=== PATIENT | male | born 1940 | race Caucasian/White ===

== ENCOUNTER → 2016-05-20 | Outpatient (CLI) | payer BC ==
[~2016-05-20] MED LIST: ASPEC81 PO; CALC625T PO; CHOL1000 PO; CIPR-255 PO; CYAN100020 PO; FLUV80TA PO; GLC850 PO; GLIP-197 PO; LISI10TA PO; MELA3TAB PO; MULTTAB58 PO; OMEGCAP2 PO; OMEP40CA41 PO
[2016-05-20 13:26] LABS: BASO % 0.8 %; BASO ABS # 0.06 K/uL (0-0.2); COMPLETE YES; EOS % 2.7 %; IG% 0.4 %; LYMPH % 39.8 %; LYMPH ABS # 2.82 K/uL (1.2-3.4); MEAN CELL VOLUME 83.7 fL (80-100); MEAN CORPUSCULAR HEMOGLOBIN 27.7 pg (25-34); MEAN CORPUSCULAR HGB CONC 33.1 g/dl (32-36); MEAN PLATELET VOLUME 10.5 fL (7.4-10.4); MONO % 12.4 %; NEUT % 43.9 %; PLATELET COUNT 271 K/uL (130-400); WHITE BLOOD COUNT 7.09 K/uL (4.8-10.8)
[2016-05-20 13:40] LABS: ALT/SGPT 26 U/L (12-78); BLOOD UREA NITROGEN 23 mg/dl (7-18); BUN/CREATININE RATIO 16.1 (10-20); CALCIUM 9.5 mg/dl (8.5-10.1); CARBON DIOXIDE 20 mmol/L (21-32); CHLORIDE 105 mmol/L (98-107); GLUCOSE 243 mg/dl (70-99); POTASSIUM 3.9 mmol/L (3.5-5.1); SODIUM 138 mmol/L (136-145)
[2016-05-20 13:43] LABS: ALB/GLOB RATIO 0.9 (0.9-2); ALKALINE PHOSPHATASE 55 U/L (45-117); AST/SGOT 15 U/L (15-37)
== END | disposition home or self-care (01) ==
LOC: C.LABBC 10:38
PROVIDERS: ATTEND Internal Medicine
DX: K52.9 Noninfective gastroenteritis and colitis, unspecified (principal)

== ENCOUNTER → 2016-05-21 | Outpatient (CLI) | payer BC ==
[2016-06-01 11:52] LABS: O&P SOURCE OTHER-STOOL
== END ==
LOC: C.LABSPEC 11:28
PROVIDERS: ATTEND Internal Medicine
DX: K52.9 Noninfective gastroenteritis and colitis, unspecified (principal)

== ENCOUNTER → 2016-08-18 | Outpatient (CLI) | payer BC ==
[2016-08-18 11:23] LABS: CHOLESTEROL/HDL RATIO 4.5
== END | disposition home or self-care (01) ==
LOC: C.LABBC 08:02
PROVIDERS: ATTEND Internal Medicine Cardiovascular Disease
DX: I10 Essential (primary) hypertension (principal); E78.5 Hyperlipidemia, unspecified

== ENCOUNTER 2019-11-19 10:40 | Observation (INO) ==
--- NOTE | 2019-10-25 13:25 | PAT Medication Instructions ---
Medication Instructions Date of Service October 25, 2019 Home Medications Medication Instructions Recorded Accu-Chek Softclix Lancets #200 ea NS 12/24/18 sildenafil 100 mg tablet See Rx Instructions .ROUTE 01/17/19 .COMPLEX #10 tab atorvastatin 40 mg tablet 60 mg PO QPM #135 tab 02/20/19 gabapentin 300 mg capsule 600 mg PO HS #180 cap 05/31/19 esomeprazole magnesium 40 mg 40 mg PO DAILY #90 cap 06/04/19 capsule,delayed release dulaglutide 1.5 mg/0.5 mL 1.5 mg SUBCUT WK #2 ml 08/09/19 subcutaneous pen injector Wheeled Walker #1 ea 10/17/19 cholecalciferol (vitamin D3) [Vitamin D3] 1,000 unit PO QAM glipizide 10 mg PO BID lisinopril 10 mg PO QAM metoprolol succinate 25 mg PO QAM multivitamin 1 tab PO QAM acetaminophen 325 mg tablet 650 mg PO Q6H PRN Lactobacillus acidophilus-Bifidobac.animalis 31 billion cell capsule 1 cap PO QAM sildenafil 100 mg tablet See Rx Instructions .ROUTE .COMPLEX atorvastatin 40 mg tablet 60 mg PO QPM insulin glargine 100 unit/mL subcutaneous solution 25 unit SUBCUT HS omega 3 350 mg-dha 235 mg-epa 90 mg-fish oil 597 mg capsule,delay rel 1 cap PO DAILY gabapentin 300 mg capsule 600 mg PO HS esomeprazole magnesium 40 mg capsule,delayed release 40 mg PO DAILY dulaglutide 1.5 mg/0.5 mL subcutaneous pen injector 1.5 mg SUBCUT WK cyanocobalamin (vitamin B-12) 1,000 mcg tablet 1,000 mcg PO .COMPLEX aspirin 81 mg PO QAM Continue as directed dulaglutide 1.5 mg/0.5 mL subcutaneous pen injector 1.5 mg SUBCUT WK STOP taking 2 weeks before surgery (or as soon as possible if surgery is within 2 weeks) omega 3 350 mg-dha 235 mg-epa 90 mg-fish oil 597 mg capsule,delay rel 1 cap PO DAILY DO NOT take the morning of surgery cholecalciferol (vitamin D3) [Vitamin D3] 1,000 unit PO QAM glipizide 10 mg PO BID lisinopril 10 mg PO QAM multivitamin 1 tab PO QAM Lactobacillus acidophilus-Bifidobac.animalis 31 billion cell capsule 1 cap PO QAM sildenafil 100 mg tablet See Rx Instructions .ROUTE .COMPLEX cyanocobalamin (vitamin B-12) 1,000 mcg tablet 1,000 mcg PO .COMPLEX Take morning of surgery With a small sip of water, OTHERWISE NOTHING TO EAT OR DRINK AFTER MIDNIGHT: metoprolol succinate 25 mg PO QAM acetaminophen 325 mg tablet 650 mg PO Q6H PRN (okay to take up to 4 hours prior to surgery if needed) esomeprazole magnesium 40 mg capsule,delayed release 40 mg PO DAILY aspirin 81 mg PO QAM Take evening before surgery glipizide 10 mg PO BID acetaminophen 325 mg tablet 650 mg PO Q6H PRN (if needed) sildenafil 100 mg tablet See Rx Instructions .ROUTE .COMPLEX (if needed) atorvastatin 40 mg tablet 60 mg PO QPM insulin glargine 100 unit/mL subcutaneous solution 25 unit SUBCUT HS gabapentin 300 mg capsule 600 mg PO HS Other Notes If you have any questions please call us at [phone] or [phone] or [phone] or [phone]
--- NOTE | 2019-10-29 09:00 | Anesthesiology Consultation ---
Date of Service October 29, 2019 Assessment & Plan (1) Encounter for pre-operative examination: - Per PAT assessment on 10/28: Travel screen negative. No known COVID-19 positive contacts. No current COVID-19 related symptoms. Surgeon arranging preop COVID testing (11/13, location TBD). Awaiting results. - Check BSG AM DOS - Cardiology office visit: 09/17/19: "The patient is stable from a cardiovascular standpoint. He demonstrates excellent control his blood pressure at home. His coronary artery disease remains quiescent his current medical regimen. No changes were made today." Cardiology addendum: 10/17/19: "The patient is an acceptable cardiac risk for knee replacement surgery without further testing." Chart Review Chart Review: Acceptable Risk for Surgery and Patient seen in Pre Admission Testing Teaching & Discussion Pre-Anesthesia Teaching/Discussion Notes: Instructed NPO after midnight before surgery,except medications with 15 cc of water. Medication instructions provided according to the PAT guidelines. History Surgery Operation Date: 11/19/19 12:30 Proposed Procedures p Right Total Knee Arthroplasty - Mehran Pineda MD Height/Weight Height: 5 ft 8 in Weight: 91.6 kg Allergies Allergy/AdvReac Type Severity Reaction Status Date / Time simvastatin AdvReac Intermediate Joint pain Verified 10/29/19 08:58 Medications Home Medications Medication Instructions Recorded Confirmed Last Taken cholecalciferol (vitamin D3) 1,000 unit PO QAM 06/12/18 10/24/19 07/10/18 08:00 [Vitamin D3] glipizide 10 mg PO BID 06/12/18 10/24/19 07/10/18 18:00 lisinopril 10 mg PO QAM 06/12/18 10/24/19 07/10/18 08:00 metoprolol succinate 25 mg PO QAM 06/12/18 10/24/19 07/10/18 08:00 multivitamin 1 tab PO QAM 09/04/18 10/24/19 Unknown acetaminophen 325 mg tablet 650 mg PO Q6H PRN tab 10/10/18 10/24/19 Unknown Lactobacillus 1 cap PO QAM cap 10/24/18 10/24/19 Unknown acidophilus-Bifidobac.animalis 31 billion cell capsule blood sugar diagnostic #10 ea 10/24/18 05/23/19 Unknown pen needle, diabetic 32 gauge x #50 ea 10/24/18 05/02/19 Unknown 03/16" Accu-Chek Softclix Lancets #200 ea NS 12/24/18 05/02/19 Unknown sildenafil 100 mg tablet See Rx Instructions .ROUTE 01/17/19 10/24/19 Unknown .COMPLEX #10 tab atorvastatin 40 mg tablet 60 mg PO QPM #135 tab 02/20/19 10/24/19 Unknown insulin glargine 100 unit/mL 25 unit SUBCUT HS ml 04/16/19 10/24/19 Unknown subcutaneous solution omega 3 350 mg-dha 235 mg-epa 90 1 cap PO DAILY cap 05/02/19 10/24/19 Unknown mg-fish oil 597 mg capsule,delay rel gabapentin 300 mg capsule 600 mg PO HS #180 cap 05/31/19 10/24/19 Unknown esomeprazole magnesium 40 mg 40 mg PO DAILY #90 cap 06/04/19 10/24/19 Unknown capsule,delayed release dulaglutide 1.5 mg/0.5 mL 1.5 mg SUBCUT WK #2 ml 08/09/19 10/24/19 Unknown subcutaneous pen injector cyanocobalamin (vitamin B-12) 1,000 mcg PO .COMPLEX 09/17/19 10/24/19 Unknown 1,000 mcg tablet Wheeled Walker #1 ea 10/17/19 10/17/19 Unknown aspirin 81 mg PO QAM 10/24/19 10/24/19 Unknown Past Medical History Medical History (Updated 10/29/19 @ 09:21 by Maria Guadalupe Taylor) Acid reflux controlled Anemia CAD (coronary artery disease) s/p CABGx3 (2012) Diabetes mellitus, type 2 IDDM Hyperlipidemia Hypertension Meningioma under surveillance Osteoarthritis Peripheral neuropathy Skin cancer BCC, 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 Daughter Crohn's disease Short gut syndrome Past Surgical History Surgical History (Updated 10/29/19 @ 09:24 by Maria Guadalupe Taylor) History of cardiac cath 2012 (NO STENTS) History of cataract surgery RT/LEFT History of colonoscopy History of tonsillectomy History of tooth extraction Hx of lymph node excision Left inguinal lymph node biopsy: 07/11/18: LMA#5 at [facility] S/P CABG x 13 AUGUST 2012 AT [place] Past Anesthesia History No Hx of Anesthesia Complications and No Family Hx of Anesthesia Complications History of PONV No Hx of PONV and No Hx of Motion Sickness Social History Smoking Status: Former smoker tobacco type: cigarettes Do You Dip or Chew Tobacco: No Smoking End Date: 2012 (hx < 1 PPD) Hx Alcohol Use: Yes Alcohol type: beer alcohol intake frequency: holidays/special occasions only Hx Substance Use: No substance use type: does not use Review of Systems Patient denies chest pain, shortness of breath, dyspnea on exertion, fever, chills, cough, wheezing, palpitations. Physical Exam Vital Signs VITALS BP 125/73 P 68 TEMP 98.1 SP02 95%RA RESP 18 PHYSICAL Full neck and c-spine range of motion. Full TMJ range of motion. TMD 3 finger breaths Mallampati Score 3 Dentition: full upper, lower partial Lungs: clear throughout to auscultation Cardiac: regular rate and rhythm, no murmurs noted Spine: normal Carotid arteries: negative bruit Extremities: no edema Testing Laboratory Results PT 11.2 Seconds (9.0-12.0) 10/29/19 09:14 INR 1.1 (0.9-1.1) 10/29/19 09:14 APTT 24.5 Seconds (21.0-31.0) 10/29/19 09:14 Blood Type A Positive 10/29/19 09:14 Antibody Screen NEGATIVE 10/29/19 09:14 10/28/19 WBC 6.08 H/H 13.5/39.8 PLATELETS 186 SODIUM 137 POTASSIUM 4.2 CHLORIDE 103 CO2 25 BUN 25 CREATININE 1.50 GLUCOSE 229 HGBA1C 7.7% Electrocardiogram Date: 10/29/19 SR with first degree AVB at 63bpm. No significant change compared to 06/14/18 per job forwarder review. Chest X-Ray Date: 10/29/19 FINDINGS: Median sternotomy wires and mediastinal surgical clips are noted. Mild cardiomegaly is unchanged. There is no evidence for pulmonary edema. No consolidation. No pneumothorax or pleural effusion is noted. The appearance of the chest is unchanged. IMPRESSION: No acute cardiopulmonary findings. No change in appearance of the chest.
--- NOTE | 2019-10-29 09:57 | XRay Report ---
XR chest Pre-admission PA/Lat CLINICAL HISTORY: Preoperative evaluation. COMPARISON STUDY: PET/CT September 17, 2018. Chest radiograph June 14, 2018. FINDINGS: Median sternotomy wires and mediastinal surgical clips are noted. Mild cardiomegaly is unch anged. There is no evidence for pulmonary edema. No consolidation. No pneumothorax or pleural effusio n is noted. The appearance of the chest is unchanged. IMPRESSION: No acute cardiopulmonary findings. No change in appearance of the chest. ACT 112: Negative or not required by law. Electronically signed by: Ron Maurer M.D. 10/29/2019 9:55 AM
[2019-10-29 10:22] LABS: INR 1.1 (0.9-1.1); Partial Thromboplastin Ratio 0.9; Partial Thromboplastin Time 24.5 Seconds (21.0-31.0); Prothrombin Time 11.2 Seconds (9.0-12.0)
--- NOTE | 2019-10-29 13:08 | Electrocardiogram Report ---
Test Reason : Blood Pressure : / mmHG Vent. Rate : 063 BPM Atrial Rate : 063 BPM P-R Int : 240 ms QRS Dur : 104 ms QT Int : 420 ms P-R-T Axes : 030 010 029 degrees QTc Int : 429 ms Sinus rhythm with 1st degree A-V block Otherwise normal ECG When compared with ECG of 14-JUN-2018 09:32, No significant change was found Confirmed by Bernard Bull ([id number]) on 10/29/2019 1:08:28 PM Referred By: Mehran Pineda Confirmed By:Bernard Bull
--- NOTE | 2019-11-16 14:49 | History and Physical Report ---
DATE OF ADMISSION: 11/19/2019 CHIEF COMPLAINT: Bilateral knee pain and discomfort, right side greater than left. HISTORY OF PRESENT ILLNESS: The patient is a 79-year-old gentleman who presents for treatment of his knees. He is here specifically for surgical treatment. He has got a long history of bilateral knee pain and discomfort that has gotten worse over the past 10 years. He has been through extensive conservative treatment including both steroid shots and viscosupplementation, which helped maybe for a month at most. He now would like to consider surgery. Both knees hurt. It is global pain. The more he walks, the more it hurts. He has nighttime discomfort. He limps more as the day goes on. PAST MEDICAL HISTORY: Significant for: 1. Coronary artery disease status post bypass grafting in [place] followed by Dr. Bull. 2. Hypertension. 3. Diabetes x17-18 years. 4. Back pain. 5. Gastroesophageal reflux disease. 6. T-cell lymphoma, currently in remission. PAST SURGICAL HISTORY: Include: 1. Coronary artery bypass grafting in [place]. 2. Cataract surgery. 3. Lymph node dissection for lymphoma. ALLERGIES: ZOCOR. CURRENT MEDICATIONS: Include: 1. Insulin. 2. Tylenol. 3. Baby aspirin. 4. Atorvastatin. 5. Vitamin D3. 6. Vitamin B12. 7. Trulicity. 8. Nexium. 9. Gabapentin. 10. Glipizide. 11. Lisinopril. 12. Metoprolol. 13. Multivitamin. 14. Adel-3 fish oil. 15. Sildenafil. SOCIAL HISTORY: A 79-year-old male. He is . A 97-vrbb-paro history of smoking, but quit in 2012. No significant alcohol intake. FAMILY HISTORY: Noncontributory. REVIEW OF SYSTEMS: Significant for long-term diabetes. Denies any current chest pain or shortness of breath. Does have a history of bypass grafting. No DVTs or PEs in the past. PHYSICAL EXAMINATION: GENERAL: Shows a pleasant elderly male. Looks a little bit younger than his stated age. HEENT: Benign. NECK: Supple, no lymphadenopathy. LUNGS: Clear to auscultation. HEART: Regular rate and rhythm. ABDOMEN: Soft, nontender, nondistended. EXTREMITIES: Grossly neurovascularly intact except as follows. Examination of both knees reveals the patient ambulates with a bit of a waddling gait with varus alignment to his knees. Examination of the right knee reveals varus alignment with varus thrust with weightbearing. He has got a small to moderate size knee effusion. Range of motion about 10 degrees short of full extension to 110 degrees of flexion. No instability. No pain with hip motion. Examination of left knee reveals varus alignment. He has got bony hypertrophy medially. Range of motion 10-120. No instability. No pain with hip motion. X-RAYS: X-rays of both knees reveal advanced bilateral knee DJD. He has got complete loss of his medial joint space on both knees. He has got chondrocalcinosis laterally bilaterally. He has got osteophytes in all 3 compartments. The left knee actually is a bit worse radiographically than the right. ASSESSMENT: A 79-year-old male with a host of medical issues including history of coronary artery disease status post coronary artery bypass grafting, long-term diabetes, hypertension and recent lymphoma in remission with advanced bilateral knee degenerative joint disease. He has failed conservative care and would like to proceed with surgical treatment. PLAN: We talked about treatment options. We are going to proceed with right knee replacement as that is the most symptomatic knee. The risks and benefits of right total knee replacement were explained to the patient including but not limited to DVT, PE, , infection, neurological injury, vascular injury, bleeding problem, pain, limited range of motion, stiffness, failure to relieve symptoms, incomplete relief of symptoms, persistent pain, etc. The patient understands and desires to proceed. Informed consent was obtained. We did talk to him about holding his lisinopril the morning of surgery and take his metoprolol. He is hoping to be discharged to home using [facility] home health program. He does have elevated chronic creatinine and we will have to be careful with NSAIDs use.
[~2019-11-19 10:40] MED LIST changes: +ACETAMINOPHEN 500 MG TAB PO SCH; -ASPEC81 PO; +BUPIVACAINE 0.5 % 5 MG/1 ML PF 10ML VIAL ONE; +BUPIVACAINE LIPOSOME/PF 266 MG, BUPIVACAINE/EPINEPHRINE 50 ML, SODIUM CHLORIDE 0.9% 30 ... INFIL SCH; -CALC625T PO; +CEFAZOLIN 2000MG 2,000 MG/15 ML SYR IV SCH; -CHOL1000 PO; -CIPR-255 PO; -CYAN100020 PO; +FAMOTIDINE 20 MG TAB PO SCH; -FLUV80TA PO; +GABAPENTIN 300 MG CAP PO SCH; -GLC850 PO; -GLIP-197 PO; -LISI10TA PO; +LR 500ML BOLUS, THEN 15ML/HR IV SCH; +LR 60ML/HR IV SCH; -MELA3TAB PO; +METOCLOPRAMIDE HCL 10 MG TABLET PO SCH; -MULTTAB58 PO; -OMEGCAP2 PO; -OMEP40CA41 PO; +TRANEXAMIC ACID 1,000 MG **IV Intra-op IV SCH
[2019-11-19] MEDS ORDERED: DEXAMETHASONE SOD INJ 4 MG/ML VIAL ONE (10:48)
[2019-11-19] MEDS ORDERED: LIDOCAINE HCL 2% 2 ML VIAL/AMP(20MG/ML) INFIL ONE (10:48)
[2019-11-19] MEDS ORDERED: MIDAZOLAM HCL 1 MG/ML 2ML VIAL ONE (10:48)
[2019-11-19] MEDS ORDERED: PROPOFOL IV EMULSION 10 MG/ML 20 ML VIAL IV ONE ×2 (10:48→13:50)
[2019-11-19] MEDS ORDERED: GLYCOPYRROLATE 0.2 MG/ML VIAL ONE (10:48)
[2019-11-19] MEDS ORDERED: ONDANSETRON INJ 2 MG/ML 2 ML VIAL ONE (10:48)
[2019-11-19] MEDS ORDERED: PHENYLEPHRINE 100MCG/ML 5ML SYR ONE ×2 (11:23→13:11)
[2019-11-19] MEDS ORDERED: ATROPINE SULFATE 0.1 MG/ML 10ML SYR IV PRN (12:03)
[2019-11-19] MEDS ORDERED: ONDANSETRON INJ 2 MG/ML 2 ML VIAL IV PRN ×2 (12:03→15:52)
[2019-11-19] MEDS ORDERED: ePHEDrine sulfate 50 MG/ML AMP IV PRN (12:03)
[2019-11-19] MEDS ORDERED: fentaNYL citrate 100 MCG/2 ML VIAL IV PRN (12:03)
--- NOTE | 2019-11-19 12:11 | History & Physical Bridge Note ---
Date of Service November 19, 2019 History & Physical Bridge Note I have examined the patient, reviewed the History & Physical and in the interval since the performance of the History & Physical I have noted the following changes of clinical significance: no changes noted
[2019-11-19] MEDS ORDERED: SODIUM CHLORIDE 0.9% PF 50 ML VIAL ONE (12:16)
[2019-11-19] MEDS ORDERED: BUPIVACAINE/EPINEPHRINE 0.25% 1:200,000 30 ML VIAL ONE (12:16)
[2019-11-19] MEDS ORDERED: BACITRACIN INJ 50,000 UNIT VIAL ONE (12:16)
[2019-11-19] MEDS ORDERED: BUPIVACAINE LIPOSOME 1.3% 266 MG/20 ML VIAL ONE (12:16)
[2019-11-19] MEDS ORDERED: ePHEDrine sulfate 50 MG/ML SYR ONE (12:49)
--- NOTE | 2019-11-19 14:17 | Post Operative Brief Note ---
PG Immediate Post Op with CF Date of Surgery November 19, 2019 Pre & Post Diagnosis Operation Date: 11/19/19 12:40 Pre-Op Diagnosis: Right Knee Advanced Degenerative Joint Disease Post-Op Diagnosis: Right Knee Advanced Degenerative Joint Disease I identified the patient and participated in the time-out.: Yes Procedure Operation Date: 11/19/19 12:40 Actual Procedures p Right Total Knee Arthroplasty(Right) - Mehran Pineda MD Surgeon Mehran Pineda MD Incident Response Consultant Taya, PAC Estimated Blood Loss 50 Findings Consistent with Post-Op Diagnosis Fluids 1200 cc Specimens Specimen Description: A. Right Knee Bone and Tissue Drains Chris Catheter Anesthesia Type Spinal MAC Complications none Disposition Accompanied Patient To Recovery: No Disposition: Recovery Room
--- NOTE | 2019-11-19 14:33 | Operative Report ---
Post Operative Report Pre & Post Diagnosis Operation Date: 11/19/19 12:40 Pre-Op Diagnosis: Right Knee Advanced Degenerative Joint Disease Post-Op Diagnosis: Right Knee Advanced Degenerative Joint Disease I identified the patient and participated in the time-out.: Yes Procedure Operation Date: 11/19/19 12:40 Actual Procedures p Right Total Knee Arthroplasty(Right) - Mehran Pineda MD Surgeon Mehran Pineda MD Getter Filler Taya, PAC Estimated Blood Loss 50 Findings Consistent with Post-Op Diagnosis . He had grade 4 disease of the patellofemoral compartment as well and some spotty grade 4 changes laterally. He had moderate to large knee joint effusion.Operative findings revealed advanced right knee DJD. He had a fixed varus deformity to his knee in about 10 to 15 degree flexion contracture. He has extensive grade 4 cubr-bu-jiel disease and eburnation of medial compartment Fluids 1200 cc. Specimens Right knee sent for pathology. Drains None. Anesthesia Type Spinal MAC Complications none Disposition Accompanied Patient To Recovery: No Disposition: Recovery Room Indications Patient is 79-year-old fairly active gentleman is had a long history of bilateral knee pain discomfort right side greater than left knee has been through extensive conservative treatment the past which became less successful. Both knees were bothering but the right hurt more than the left. He elected proceed with total knee arthroplasty. Description of Procedure Operative implants consist of: 1. Biomet Vanguard size 67.5 right posterior stabilized femoral component. 2. Biomet size 79 tibial tray. 3. 12 mm posterior stabilized polyethylene insert. 4. 31 x 8 all poly-patella. The patient was taken to the operating room identified and placed on the operating table supine position. All contractors were properly padded. IV ant ibiotics tried by anesthesia team. A spinal anesthetic and abductor canal block had been provided in the holding area. Chris catheter was placed in sterile fashion. Right thigh turn was then placed in the right lower extremities and prepped and draped in usual sterile fashion. The right leg was elevated exsanguinated with use of an Esmarch introspect at 300 mmHg. An anterior approach of the right knee was then performed to a longitudinal incision centered over the patella. Sharp dissection was got through subcutaneous cyst down to the extensor mechanism. A medial parapatellar arthrotomy incision was made. Some subperiosteal dissection was carried out medially. The fat pad was resected from the knee the patella tendon. The lateral patellofemoral ligament was released. The patella was subluxated laterally and the knee was flexed. The osteophytes were taken off the distal femur. The ACL and PCL were then released from the distal femur and the tibia subluxated anteriorly. The external tibial alignment jig was then placed in the anterior face the tibia and adjusted 16 mm medially. Proximal tibial cut was made to remove about a millimeter of bone from most efficient aspect medial tibial plateau. The tibia sized to a size 79. Attention drawn the femur. The distal femur examined the sharp drop with intramedullary canal was suction. A right 6 degree valgus cutting guide was placed. The distal femoral cutting block was pinned in place. Distal femoral cut was made to take an additional 3 mm of bone off distal femur. The femur was then sized to a size 67.5. The AP cutting block was pinned parallel to the epicondylar axis which was 4 degrees of external rotation. The anterior cut, anterior chamfer, posterior cut, posterior chamfer cuts were made. Box cutting guide was placed in a just slight lateral and the box cut was made. The femur was flexed. The remnants of the medial and lateral menisci were excised. The osteophytes were taken off the posterior aspect of the femur. A trial femoral component was placed. The tibial tray was pinned in maximum external rotation and the drill and standpoints were used to create defect in proximal tibia for the tibial tray. The knee was then trialed and the 12 mm insert fit most appropriately. Attention drawn the patella. Patella was cleaned of all soft tissues. Patella thickness measured 23 mm in thickness was cut down to 14. Was sized to a size 31 patella. Local scheduled for 31 patella. The lateral osteophyte was removed. Patella button was placed. Knee was taken through range of motion and the patella tracked nicely with no thumbs test. Attention drawn to placing the permanent components. All trial components were removed. A bone plug was placed in the distal femur limit blood loss printed all batch Palacos G cement was mixed. A Biomet Vanguard size 67.5 right posterior Bise femoral component, size 79 tibial tray, a 12 mm posterior stabilized polyethylene insert, and a 31 x 8 all poly-patella were then cemented into place. The knee was brought out into full extension total cement hardened. A final cement check was then performed. The pericapsular tissues were then injected with 100 cc of combination of 20 cc of Exparel, 30 cc normal saline, 50 cc of quarter percent Marcaine with epinephrine. Patient did receive 1 g of tranexamic acid. The tech was then let down for final turn time 56 minutes. Hemostasis assured with electrocautery. The extensor mechanism closed with combination 1 PDS suture #1 Vicryl suture in a [id number] fashion. The extensor mechanisms were checked found to be intact and the subcutaneous tissue then closed with 2 Dexon suture in a buried interrupted fashion skin was closed with skin nick. The right leg was then cleaned and dried a sterile dressing composed Xeroform, 4 fours, sterile cast padding, Jacobo bandage were applied. Patient then transferred to the recovery room in stable condition. Patient tolerated the procedure well and there were no complications. Sohan Bain, my physician assistant county attorney, was present for the entire procedure. His assistance was essential and required for appropriate patient positioning, prepping and draping, surgical exposure, performed the technical details of the operation, implantation of components, closure of the wound, and placement of the sterile bandage. I attest to the content of the Intraoperative Record and any orders documented therein. Any exceptions are noted below.
--- NOTE | 2019-11-19 14:41 | XRay Report ---
XR knee RT 1 or 2V routine CLINICAL HISTORY: Surgical Post Op COMPARISON: Knee radiographs October 17, 2019. FINDINGS: Alignment of the total right knee arthroplasty is anatomic. There is no periprosthetic fra cture or unexpected radiopaque foreign body. There are skin nick. IMPRESSION: Expected findings following total right hip arthroplasty. ACT 112: Negative or not required by law. Electronically signed by: Ron Maurer M.D. 11/19/2019 2:40 PM
--- NOTE | 2019-11-19 14:59 | Anesthesiology Progress Note ---
Date of Service November 19, 2019 Anesthesia Post Procedure Vital Signs Vital Signs: Temp Pulse Pulse Resp BP BP Pulse Ox 11/19/19 14:50 62 15 121/46 L 95 11/19/19 14:40 67 16 127/52 L 96 11/19/19 14:30 72 17 104/54 L 98 11/19/19 14:22 97.7 F 76 17 93/58 L 93 11/19/19 11:37 98.2 F 69 20 163/76 H 95 Pain Intensity Right Knee: Pain Intensity: 4 Transfer of Care Handoff Completed per policy Notes Mental Status: alert / awake / arousable and participated in evaluation Patient Amnestic to Procedure: Yes Nausea / Vomiting: adequately controlled Pain: adequately controlled Airway Patency, RR, SpO2: stable & adequate BP & HR: stable & adequate Hydration State: stable & adequate Neuraxial Anesthesia: was administered and sensory block is resolving Anesthetic Complications: no major complications apparent and Pt Satisfied with anesthetic care
[2019-11-19] MEDS ORDERED: ALUMINUM/MAGNESIUM SUSP 30 ML UDC PO PRN (15:52)
[2019-11-19] MEDS ORDERED: DEXTROSE 50% 50 ML SYRINGE IV PRN (15:52)
[2019-11-19] MEDS ORDERED: MAGNESIUM HYDROXIDE SUSP 30 ML UDC PO PRN (15:52)
[2019-11-19] MEDS ORDERED: GLUCAGON FOR INJ 1 MG VIAL SQ PRN (15:52)
[2019-11-19] MEDS ORDERED: HYDROmorphone INJ 0.5 MG/0.5 ML SYR IV PRN (15:52)
[2019-11-19] MEDS ORDERED: NON-FORMULARY MEDICATION (Dulaglutide [Trulicity] 1.5 MG) SQ SCH (15:52)
[2019-11-19] MEDS ORDERED: GLUCOSE 40% GEL 15 GM TUBE PO PRN (15:52)
[2019-11-19] MEDS ORDERED: TAMSULOSIN HCL 0.4 MG CAP PO PRN (15:52)
[2019-11-19] MEDS ORDERED: METOCLOPRAMIDE HCL INJ 5 MG/ML 2 ML VIAL IV PRN (15:52)
[2019-11-19] MEDS ORDERED: NO NSAIDS SCH (15:52)
[2019-11-19] MEDS ORDERED: NALOXONE HCL 0.4 MG/1 ML VIAL/CARP IV PRN (15:52)
[2019-11-19] MEDS ORDERED: CARBOHYDRATES FOR HYPOGLYCEMIA PO PRN (15:52)
[2019-11-19] MEDS ORDERED: bisacodyL 10 MG SUPP PR PRN (15:52)
[2019-11-19] MEDS ORDERED: GLUCOSE 10 TABS/TUBE PO PRN (15:52)
[2019-11-19] MEDS ORDERED: PHARMACY GLYCEMIC MGMT CONSULT PRN (16:33)
[2019-11-19] MEDS: SODIUM CHLORIDE 0.9% 1000ML 1,000 ML IV SCH (16:56)
--- NOTE | 2019-11-19 16:57 | Pharmacy Report ---
Pharmacy Glycemic Short Note 2 - Date of Service November 19, 2019 - Glycemic Short BSG Results (Last 24 hours): 11/19/19 11/19/19 11/19/19 11:07 14:37 16:41 POC Glucose 143 H 128 H 200 H OUTPATIENT ANTIDIABETIC REGIMEN: * Lantus 25 units HS (last dose evening 11/17) * Dulaglutide 1.5mg SQ weekly * Glipizide 10mg BID * A1c: 7.7% 10/28/19 ASSESSMENT: * Patient post op from R. Total Knee Arthroplasty * Post operative blood sugars have been well controlled thus far * Dexamethasone 4mg pulled from [facility] but NOT charted as given. After discussion with nurse, dexamethasone was not charted on OR sheet nor was this acknowledged as given in nursing report. * Will continue with home Lantus dosing as a one time dose for this evening and reassess tomorrow. Will hold oral glipizide and order a moderate intensity NovoLog scale. If dexamethasone was in fact given and evening BSGs spike, this will need to be tightened. PLAN FOR INPATIENT GLYCEMIC CONTROL: * Hold outpatient oral diabetes medications * Basal insulin * Lantus 25 units SQ HS * Bolus insulin * NovoLog per scale ACHS or Q6hrs while NPO * Goal Range: Low 110 mg/dL - High 140 mg/dL * Correction Factor: 25 mg/dL/unit * Nutritional / Prandial insulin per carb ratio of 1 unit per 9 grams CHO consumed
[2019-11-19] MEDS: INSULIN ASPART 100 UNITS/ML 3 ML PEN SC SCH ×3 (17:13→23:58)
[2019-11-19] MEDS: FERROUS GLUCONATE 324 MG TAB PO SCH (17:13)
[2019-11-19] MEDS: ASCORBIC ACID 500 MG TAB PO SCH (17:14)
[2019-11-19] MEDS: TRAMADOL HCL 50 MG TABLET PO PRN (20:04)
[2019-11-19] MEDS: CEFAZOLIN 2000MG 2,000 MG/15 ML SYR IV SCH (20:04)
[2019-11-19] MEDS: DOCUSATE SODIUM 100 MG CAP PO SCH (20:05)
[2019-11-19] MEDS: SENNA 8.6 MG TAB PO SCH (20:05)
[2019-11-19] MEDS: ASPIRIN 81 MG ECTAB PO SCH (20:05)
[2019-11-19] MEDS: ATORVASTATIN 20 MG TAB PO SCH (20:06)
[2019-11-19] MEDS: GABAPENTIN 300 MG CAP PO SCH (20:06)
[2019-11-19] MEDS: ACETAMINOPHEN 500 MG TAB PO SCH (20:54)
[2019-11-19] MEDS ORDERED: LANTUS PER UNIT CHARGE SQ SCH (21:00)
[2019-11-19] MEDS ORDERED: glipiZIDE 5 MG TAB PO SCH (21:00)
[2019-11-19] MEDS ORDERED: INSULIN ASPART 100 UNITS/ML 3 ML PEN SC SCH (21:00)
[2019-11-20] MEDS: CEFAZOLIN 2000MG 2,000 MG/15 ML SYR IV SCH (03:10)
[2019-11-20] MEDS: SODIUM CHLORIDE 0.9% 1000ML 1,000 ML IV SCH (03:10)
[2019-11-20] MEDS: INSULIN ASPART 100 UNITS/ML 3 ML PEN SC SCH ×5 (03:58→21:06)
[2019-11-20] MEDS: ACETAMINOPHEN 500 MG TAB PO SCH ×3 (05:20→21:03)
[2019-11-20 06:30] LABS: Hematocrit (blood only) 34.5 % (42-52); Mean Corpuscular Hemoglobin 30.5 pg (25-34); Mean Corpuscular Hgb Conc 34.8 g/dL (32-36); Mean Corpuscular Volume 87.8 fL (80-100); Platelet Count 187 K/uL (130-400); RDW Coefficient of Variation 13.1 % (11.5-14.5); RDW Standard Deviation 42.4 fL (36.4-46.3); Red Blood Count 3.93 M/uL (4.7-6.1); White Blood Count 10.63 K/uL (4.8-10.8)
[2019-11-20 06:58] LABS: BUN Creatinine Ratio 19.1 (10-20); Calcium 8.9 mg/dl (8.5-10.1); Est GFR (African American) 55.8; Est GFR (Non-African American) 48.1; Potassium 4.3 mmol/L (3.5-5.1)
[2019-11-20] MEDS: CHOLECALCIFEROL 1,000 UNITS 25 MCG TAB PO SCH (08:20)
[2019-11-20] MEDS: METOPROLOL SUCC 25MG EXT REL TAB PO SCH (08:21)
[2019-11-20] MEDS: CYANOCOBALAMIN 500 MCG TABLET (VITAMIN B-12) PO SCH (08:21)
[2019-11-20] MEDS: FERROUS GLUCONATE 324 MG TAB PO SCH ×2 (08:21→17:20)
[2019-11-20] MEDS: LACTOBACILLUS ACIDOPHILUS (FLORANEX) TAB PO SCH (08:21)
[2019-11-20] MEDS: lisinopriL 10 MG TAB PO SCH (08:21)
[2019-11-20] MEDS: MULTIVITAMIN TAB PO SCH (08:21)
[2019-11-20] MEDS: OMEGA-3 (PURIFIED FISH OIL) 1 GM CAP PO SCH (08:22)
[2019-11-20] MEDS: ASCORBIC ACID 500 MG TAB PO SCH ×2 (08:22→17:20)
[2019-11-20] MEDS: ASPIRIN 81 MG ECTAB PO SCH ×2 (08:22→21:04)
[2019-11-20] MEDS: PANTOprazole 40 MG TAB PO SCH (08:22)
[2019-11-20] MEDS: DOCUSATE SODIUM 100 MG CAP PO SCH ×2 (08:22→21:04)
[2019-11-20] MEDS: TRAMADOL HCL 50 MG TABLET PO PRN ×3 (08:25→22:33)
[2019-11-20] MEDS ORDERED: MULTIVITAMIN TAB PO SCH (09:00)
--- NOTE | 2019-11-20 10:41 | Pharmacy Report ---
Pharmacy Glycemic Short Note 2 - Date of Service November 20, 2019 - Glycemic Short BSG Results (Last 24 hours): 11/19/19 11/19/19 11/19/19 11:07 14:37 16:41 Glucose POC Glucose 143 H 128 H 200 H 11/19/19 11/19/19 11/20/19 20:39 23:53 03:56 Glucose POC Glucose 273 H 177 H 148 H 11/20/19 11/20/19 05:47 08:13 Glucose 141 H POC Glucose 159 H OUTPATIENT ANTIDIABETIC REGIMEN: * Lantus 25 units HS (last dose evening 11/17) * Dulaglutide 1.5mg SQ weekly * Glipizide 10mg BID * A1c: 7.7% 10/28/19 ASSESSMENT: * DW is now POD #1 s/p right TKA * Dexamethasone 4mg pulled from [facility] but NOT charted as given. After discussion with nurse, dexamethasone was not charted on OR sheet nor was this acknowledged as given in nursing report. * BSGs yesterday of 128, 200, 273, 148 mg/dL * Novolog tightened after dinner - will further tighten carb ratio today PLAN FOR INPATIENT GLYCEMIC CONTROL: * Hold outpatient oral diabetes medications * Basal insulin - continue * Lantus 25 units SQ HS * Bolus insulin - tighten carb ratio * NovoLog per scale ACHS or Q6hrs while NPO * Goal Range: Low 110 mg/dL - High 140 mg/dL * Correction Factor: 20 mg/dL/unit * Nutritional / Prandial insulin per carb ratio of 1 unit per 6 grams CHO consumed
--- NOTE | 2019-11-20 19:06 | Progress Notes ---
DATE: 11/20/2019 SUBJECTIVE: A 79-year-old gentleman postop day 1 from right knee replacement. He is doing reasonably well. Quite a bit of pain after therapy, but seems to be doing better with some pain medicine. No chest pain or shortness of breath. Not feeling dizzy or lightheaded. OBJECTIVE: VITAL SIGNS: Temperature 36.5. Vital signs stable. GENERAL: Reveals a pleasant elderly male. He is sitting up in his bedside and looks really pretty comfortable currently. LUNGS: Clear to auscultation. HEART: Has regular rate and rhythm. ABDOMEN: Soft, nontender, nondistended. EXTREMITIES: Grossly neurovascularly intact except as follows: Examination of the right leg reveals the dressing to be clean, dry, and intact. He can dorsiflex and plantarflex his foot appropriately. He is neurologically intact. LABORATORY DATA: Hemoglobin 12.0. Hematocrit 34.5. Electrolytes are stable. ASSESSMENT: A 79-year-old gentleman postoperative day 1 from right knee replacement, doing reasonably well. Having a moderate amount of pain, but nothing unusual. Doing okay with pain pills. He is neurologically intact. PLAN: 1. DVT prophylaxis including thigh-high TEDs, SCDs, and aspirin twice a day. 2. PT/OT. Weight bear as tolerated. Right total knee protocol. 3. Pain control, doing okay with current pain regimen. 4. Disposition: Plan to discharge to home with some home health once adequately recovered and medically stable and pain controlled.
[2019-11-20] MEDS ORDERED: INSULIN GLARGINE SOLOSTAR 100 UNITS/ML 3 ML PEN SC SCH (21:00)
[2019-11-20] MEDS: GABAPENTIN 300 MG CAP PO SCH (21:04)
[2019-11-20] MEDS: SENNA 8.6 MG TAB PO SCH (21:05)
[2019-11-20] MEDS: ATORVASTATIN 20 MG TAB PO SCH (21:05)
[2019-11-20 23:35] VITALS: TEMP 98.1; O2SAT 97
[2019-11-21] MEDS: ACETAMINOPHEN 500 MG TAB PO SCH (05:47)
[2019-11-21 06:25] VITALS: BP 148/74; PULSE 60
[2019-11-21] MEDS: ASPIRIN 81 MG ECTAB PO SCH (07:29)
[2019-11-21] MEDS: DOCUSATE SODIUM 100 MG CAP PO SCH (07:29)
[2019-11-21] MEDS: METOPROLOL SUCC 25MG EXT REL TAB PO SCH (07:29)
[2019-11-21] MEDS: CYANOCOBALAMIN 500 MCG TABLET (VITAMIN B-12) PO SCH (07:29)
[2019-11-21] MEDS: PANTOprazole 40 MG TAB PO SCH (07:29)
[2019-11-21] MEDS: LACTOBACILLUS ACIDOPHILUS (FLORANEX) TAB PO SCH (07:30)
[2019-11-21] MEDS: MULTIVITAMIN TAB PO SCH (07:30)
[2019-11-21] MEDS: lisinopriL 10 MG TAB PO SCH (07:30)
[2019-11-21] MEDS: CHOLECALCIFEROL 1,000 UNITS 25 MCG TAB PO SCH (07:30)
[2019-11-21] MEDS: ASCORBIC ACID 500 MG TAB PO SCH (07:30)
[2019-11-21] MEDS: FERROUS GLUCONATE 324 MG TAB PO SCH (07:30)
[2019-11-21] MEDS: OMEGA-3 (PURIFIED FISH OIL) 1 GM CAP PO SCH (07:30)
[2019-11-21] MEDS: INSULIN ASPART 100 UNITS/ML 3 ML PEN SC SCH (07:36)
[2019-11-21] MEDS: TRAMADOL HCL 50 MG TABLET PO PRN (07:40)
--- NOTE | 2019-11-21 08:56 | Progress Notes ---
DATE: 11/21/2019 SUBJECTIVE: A 79-year-old male postop day 2 from right knee replacement. He is doing pretty well. Pain is controlled. Had a pretty good night. No chest pain or shortness of breath. Not feeling dizzy or lightheaded. OBJECTIVE: VITAL SIGNS: Temperature 36.7. Vital signs stable. GENERAL: Physical examination shows a pleasant, middle-aged male. He is lying in bed, looks pretty comfortable. EXTREMITIES: Examination of the right leg reveals the leg to be well aligned. Dressing is clean, dry and intact. No significant drainage. Calf is soft and supple. He is neurologically intact. ASSESSMENT: A 79-year-old gentleman postop day 2 from right knee replacement, doing pretty well. His pain is controlled. PLAN: 1. DVT prophylaxis include thigh-high TEDs, SCDs and aspirin twice a day. 2. PT/OT. Weight bear as tolerated. Right total knee protocol. 3. Pain control, doing pretty well with current pain regimen. 4. Disposition: Plan to discharge to home with some home health later today.
--- NOTE | 2019-11-27 14:59 | Discharge Summary ---
Date of Service November 27, 2019 Admission HPI Per Admitting Provider Documented in the H & P Admission Exam (Per Admitting) Constitutional Documented in the H & P Discharge Data Consultations 11/19/19 15:52 Consult Case Management - Discharge Planning Routine Procedures Performed Operation Date: 11/19/19 12:40 Actual Procedures p Right Total Knee Arthroplasty(Right) - Mehran Pineda MD Hospital Course (1) Status post total right knee replacement: This patient is a 79 year old male admitted on 11/19/19 and underwent total knee arthroplasty. He tolerated the procedure well and there were no complications. Transferred to the PACU post op and later to the orthopedic floor for further care. He was given ancef for antibiotic prophylaxis. He was also given REY stockings, SCDs, and aspirin for DVT prophylaxis. Hemoglobin, hematocrit, and vital signs were monitored during his hospital stay and remained stable. Did not require any blood transfusions. There were no complications during his hospital stay. By post op day #2 the patient was tolerating a diabetic diet, pain was reasonably controlled with oral pain medicine, and he was participating in physical therapy. On post op day #2 the patient was discharged home and set up with home health care. He was given printed discharge instructions including prescriptions for extra strength tylenol, aspirin, and tramadol. Continue physical therapy, weight bearing as tolerated. Continue REY stockings. Follow up approximately 2 weeks post op or sooner if there are problems or concerns. Coding Level of Care Code None Diagnoses Status post total right knee replacement Z96.651
== END 2019-11-21 09:23 | disposition home health service (06) ==
LOC: 3E 10:40 → ASU 10:40

== ENCOUNTER 2022-01-27 20:15 | Observation (INO) ==
[2022-01-27 21:38] LABS: Basophils # (auto) 0.06 K/uL (0-0.2); Basophils % (auto) 0.7 %; Eosinophils # (auto) 0.35 K/uL (0-0.50); Eosinophils % (auto) 4.3 %; Hematocrit (blood only) 36.3 % (40.1-51.0); Hemoglobin 12.2 g/dl (14.0-18.0); Immature Granulocytes # (auto) 0.02 K/uL (0.00-0.02); Immature Granulocytes % (auto) 0.2 %; Lymphocytes # (auto) 1.79 K/uL (1.2-3.4); Lymphocytes % (auto) 22.1 %; Mean Corpuscular Hemoglobin 29.2 pg (25.0-34.0); Mean Corpuscular Hgb Conc 33.6 g/dL (32.0-36.0); Mean Corpuscular Volume 86.8 fL (80.0-100.0); Mean Platelet Volume 10.4 fL (9.4-12.4); Monocytes # (auto) 0.57 K/uL (0.24-0.82); Neutrophils # (auto) 5.32 K/uL (1.4-6.5); Neutrophils % (auto) 65.7 %; Platelet Count 218 K/uL (130-400); RDW Coefficient of Variation 13.1 % (11.5-14.5); RDW Standard Deviation 41.1 fL (36.4-46.3); Red Blood Count 4.18 M/uL (4.63-6.08); White Blood Count 8.11 K/ul (4.8-10.8)
[2022-01-27 21:48] LABS: Troponin I High Sensitivity 8.1 pg/ml (0-20)
[2022-01-27 21:49] LABS: Albumin Globulin Ratio 1.2 (0.9-2); Albumin Level 3.7 gm/dl (3.4-5.0); BUN Creatinine Ratio 19.9 (10-20); Bilirubin,Total 0.5 mg/dl (0.2-1.0); Calcium 9.4 mg/dl (8.5-10.1); Creatinine Clr Calc Pharmacy 46.5 ml/min; Est GFR (African American) 54.5 ml/min; Potassium 4.2 mmol/L (3.5-5.1); Total Protein 6.7 gm/dl (6.0-8.3)
--- NOTE | 2022-01-27 21:56 | Emergency Department Note ---
History of Present Illness General Chief complaint: Weakness Stated complaint: WEAKNESS Time Seen by Provider: 01/27/22 20:55 History of Present Illness 81-year-old male presents to the ED with a chief complaint of mumbled speech and inability to control right arm this evening. The patient states that his sympt oms occurred around 7:30 PM. His was present for the event and witnessed it. His symptoms lasted for about a 10 seconds or so. It then subsequently resolved. He also reports that his vision was off earlier this evening around 5:30 PM. He states that he was seeing double. He cannot state how long his symptoms lasted at that time but his symptoms have since resolved. He was in the hospital recently on the and yesterday for urinary retention and urinary symptoms. He had a Chris catheter placed on the .He was given some IV fluids yesterday when his creatinine was 1.68. He had a BUN of 31. Home Medications Medication Instructions Recorded Confirmed Type cholecalciferol (vitamin D3) 25 1,000 unit PO QAM 06/12/18 01/27/22 History mcg (1,000 unit) tablet (Vitamin D3) glipizide 10 mg tablet 10 mg PO BID 06/12/18 01/27/22 History metoprolol succinate 25 mg 25 mg PO QAM 06/12/18 01/27/22 History tablet,extended release 24 hr multivitamin (Daily Multi-Vitamin 1 tab PO QAM 09/04/18 01/27/22 History tablet) blood sugar diagnostic (Accu-Chek #10 ea 10/24/18 01/27/22 History Donya Plus test strips) pen needle, diabetic 32 gauge x #50 ea 10/24/18 01/27/22 History 1/4" (BD Ultra-Fine Micro Pen Needle) Accu-Chek Softclix Lancets #200 ea 12/24/18 01/27/22 Rx (lancets) sildenafil 100 mg tablet See Rx Instructions .Route 01/17/19 01/27/22 Rx .COMPLEX #10 tabs omega 3 350 mg-dha 235 mg-epa 90 1 cap PO QAM 05/02/19 01/27/22 History mg-fish oil 597 mg capsule,delay rel (Norwood-3) melatonin 5 mg tablet 5 mg PO HS PRN Sleep 03/04/20 01/27/22 History gabapentin 300 mg capsule 300 mg PO .COMPLEX #270 caps 03/26/21 01/27/22 Rx aspirin 81 mg tablet,delayed 81 mg PO DAILY 07/16/21 01/27/22 History release diclofenac sodium 1 % topical gel 2 g topical QID PRN Pain 07/16/21 01/27/22 History duloxetine 30 mg capsule,delayed 30 mg PO DAILY 07/16/21 01/27/22 History release emollient combination no.111 1 applic topical DAILY PRN Dry Skin 07/16/21 01/27/22 History (Remedy Phytoplex Moisturizer topical cream) fluoride (sodium) 1.1 % dental 1 applic dental DAILY 07/16/21 01/27/22 History paste (PreviDent 5000 Dry Mouth) terbinafine HCl 1 % topical cream 1 applic topical BID 07/16/21 01/27/22 History insulin glargine 100 unit/mL 35 unit subcut HS 09/29/21 01/27/22 History subcutaneous solution (Lantus U-100 Insulin) donepezil 5 mg tablet 5 mg PO DAILY #30 tabs 12/20/21 01/27/22 Rx esomeprazole magnesium 40 mg 40 mg PO QAM #90 caps 12/21/21 01/27/22 Rx capsule,delayed release (Nexium) ropinirole 0.5 mg tablet 0.5 mg PO HS #90 tabs 12/21/21 01/27/22 Rx tamsulosin 0.4 mg capsule 0.4 mg PO DAILY #10 caps 01/24/22 01/27/22 Rx atorvastatin 80 mg tablet 80 mg PO PM 01/27/22 01/27/22 History dulaglutide 3 mg/0.5 mL 3 mg subcut WK 01/27/22 01/27/22 History subcutaneous pen injector (Trulicity) lisinopril 20 mg tablet 20 mg PO QAM 01/27/22 01/27/22 History Allergies Allergy/AdvReac Type Severity Reaction Status Date / Time simvastatin AdvReac Intermediate Joint pain Verified 01/27/22 09:22 Past Med/Surg History Medical History Acid reflux controlled Anemia Arteriosclerotic heart disease CAD (coronary artery disease) s/p CABGx3 (2012), follows with [facility] cardiology 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 Barton Type 2 diabetes mellitus with stage 3 chronic kidney disease Uncontrolled type 2 diabetes mellitus with microalbuminuria Urinary tract infection Visual disturbance Surgical History H/O excision of mass cervical neck birthmark removal (as child) History of cardiac cath 2012- no stents History of cataract surgery R/L History of colonoscopy History of left knee replacement 05/2020 History of tonsillectomy History of tooth extraction History of total knee replacement Right TKA: 11/19/19: SAB x1 attempt at L4-L5 + PNB at [facility] Hx of lymph node excision Left inguinal lymph node biopsy: 07/11/18: LMA#5 at [facility] [place] CAB[place] 3 [place] [place] Status post right knee replacement Status post total left knee replacement Family History Mother , 80yo Heart disease Myocardial infarction Father Esophageal cancer Brother Coronary heart disease Family hx colonic polyps Sister Heart disease Presence of combination internal cardiac defibrillator (ICD) and pacemaker Sister Presence of combination internal cardiac defibrillator (ICD) and pacemaker COPD (chronic obstructive pulmonary disease) Son No problems noted. Daughter Crohn's disease Short gut syndrome Aunt Family history of diabetes mellitus Uncle Family history of diabetes mellitus Grandmother (Paternal) Family history of diabetes mellitus Denies family history of Ovarian cancer Prostate cancer Breast cancer Colorectal cancer Social History Smoking Status: Former smoker Tobacco Type: Cigarettes Age Started Using Tobacco: 13; Age Quit Using Tobacco: 72; packs per day: 0.25; Second Hand Exposure: Yes (MOTHER SMOKED); Hx Alcohol Use: No Hx Substance Use: No Preferred Language: Latvian Communication Ability: Effective Visual Impairment: No Limitations Hearing Ability: Normal Harbour Master Required: No Beliefs That Will Affect Care: None marital status: Current Living Situation: Spouse current occupational status: retired 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 [employer] Feels Safe at Home: Yes Childhood Exposure to Second-Hand Smoke: Yes caffeine: Yes (6 cups/day) during the past year weight has: remained stable Dental Care, Regularly: Yes Physical Activity Frequency: 3-4 Times per Week Seatbelt Use: always Sunscreen Use: Yes Assistive Devices: Glasses and Walker Review of Systems A total of 10 systems reviewed and were otherwise negative Physical Exam Vital Signs Vital Signs - 24 hr 01/27/22 20:09 01/27/22 21:21 Pulse Rate 68 Pulse Rate [Right] 73 Respiratory Rate 18 19 Respiratory Effort / Characteristics Non-Labored Non-Labored Respiratory Depth Normal Normal Respiratory Pattern Regular Blood Pressure 132/87 Blood Pressure [Right Arm] 108/71 Blood Pressure Mean 102 Blood Pressure Mean [Right Arm] 83 Blood Pressure Position [Right Arm] Lying Pulse Oximetry 98 97 Oxygen Delivery Method Room Air Room Air Sepsis Recent Fever Within 48 Hours No Sepsis New/Unexplained Change in Mental Status N/A Sepsis Action Taken by Nursing No Action Required CONSTITUTIONAL/VITAL SIGNS: Reviewed / noted above. GENERAL: Non-toxic in appearance. INTEGUMENTARY: Warm, dry, and Bandana. HEAD: Normocephalic. EYES: without scleral icterus or trauma. ENT/OROPHARYNX: clear and moist. LYMPHADENOPATHY/NECK: Is supple without lymphadenopathy or meningismus. RESPIRATORY: Clear to auscultation bilaterally. No increased work of breathing. CARDIOVASCULAR: Regular rate and rhythm. GI/ABDOMEN: Soft and nontender. No organomegaly or pulsatile mass. EXTREMITIES: Warm and well perfused. BACK: No CVA tenderness. NEUROLOGICAL: Intact without focal deficits. PSYCHIATRIC: normal affect. MUSCULOSKELETAL: Normally developed with good muscle tone. TRIAGE NURSING DOCUMENTATION REVIEWED. Medical Decision Making Differential Diagnosis Differential includes acute coronary syndrome, myocardial infarction, CVA, TIA, anemia, infection, pneumonia, UTI, pyelonephritis, poor nutrition, dehydration, electrolyte disturbance,hypoglycemia. Medical Records Attestation: I reviewed the patient's medical records. Home Medications Current Medication List: was personally reviewed by me Laboratory Data Attestation: I reviewed the patient's lab results. Result diagrams: 01/27/22 20:23 01/27/22 20:23 Lab Results 01/27/22 01/27/22 01/27/22 Range/Units 20:23 20: 20:23 WBC 8.11 (4.8-10.8) K/ul RBC 4.18 L (4.63-6.08) M/uL Hgb 12.2 L (14.0-18.0) g/dl Hct 36.3 L (40.1-51.0) % MCV 86.8 (80.0-100.0) fL MCH 29.2 (25.0-34.0) pg MCHC 33.6 (32.0-36.0) g/dL RDW Std Deviation 41.1 (36.4-46.3) fL RDW Coeff of Oswaldo 13.1 (11.5-14.5) % Plt Count 218 (130-400) K/uL MPV 10.4 (9.4-12.4) fL Immature Gran % (Auto) 0.2 % Neut % (Auto) 65.7 % Lymph % (Auto) 22.1 % Archer % (Auto) 7.0 % Eos % (Auto) 4.3 % Baso % (Auto) 0.7 % Neut # (Auto) 5.32 (1.4-6.5) K/uL Lymph # (Auto) 1.79 (1.2-3.4) K/uL Archer # (Auto) 0.57 (0.24-0.82) K/uL Eos # (Auto) 0.35 (0-0.50) K/uL Baso # (Auto) 0.06 (0-0.2) K/uL Immature Gran # (Auto) 0.02 (0.00-0.02) K/uL Sodium 135 L (136-145) mmol/L Potassium 4.2 (3.5-5.1) mmol/L Chloride 100 (98-107) mmol/L Carbon Dioxide 26 (21-32) mmol/L Anion Gap 9 (3-11) BUN 28 H (6-23) mg/dl Creatinine 1.41 H (0.6-1.4) mg/dl Est Cr Clr Drug Dosing 46.5 ml/min Est GFR ( Amer) 54.5 ml/min Est GFR (Non-Af Amer) 47.0 ml/min BUN/Creatinine Ratio 19.9 (10-20) Glucose 210 H (70-99(Fasting)) mg/dl Calcium 9.4 (8.5-10.1) mg/dl Total Bilirubin 0.5 (0.2-1.0) mg/dl AST 25 (13-39) U/L ALT 30 (7-52) U/L Alkaline Phosphatase 63 (34-104) U/L Troponin I High Sens 8.1 (0-20) pg/ml Total Protein 6.7 (6.0-8.3) gm/dl Albumin 3.7 (3.4-5.0) gm/dl Globulin 3.0 (2.5-4.0) gm/dl Albumin/Globulin Ratio 1.2 (0.9-2) TSH 2.065 (0.300-4.500) uIu/ml Imaging Data My Impression: Chest x-ray: Per my interpretation there is no acute disease. No pneumothorax or pneumonia. Radiologist's Impression: CT scan of the brain did not show any acute abnormality. ECG Data Attestation: I personally reviewed and interpreted this ECG as follows: Additional Comments: Twelve-lead EKG: Per my interpretation shows a sinus rhythm at a rate of 68 with a first-degree AV block. No ST elevation. No PVCs. Normal QTC. MDM Narrative 81-year-old male presents with a transient episode of mumbled speech and inability to control his right arm at 7:30 PM. His symptoms lasted for about 10 seconds and resolved. He also reported some double vision earlier tonight that has also since resolved. Currently no complaints. Does take aspirin daily. Denies any other blood thinners. Vital signs are stable. Physical exam and neuro exam were unremarkable. Blood work shows some mild renal insufficiency. CT scan of the brain was unremarkable. Twelve-lead EKG shows a sinus rhythm. The patient symptoms are consistent with a TIA. He will be seen by the hospitalist for further evaluation and care. Impression & Plan Brain TIA Discharge Plan Visit Data Chief Complaint: Weakness Stated Complaint: WEAKNESS ED Provider: Kong Davenport Discharge Problem: Brain TIA Forms Stand Alone Forms: My [facility] Prescriptions Prescriptions: No Action diclofenac sodium 1 % gel 2 g topical QID PRN (Reason: Pain) Rx Instructions: apply to single elbow, wrist or hand; for hand includes palm/fingers/back of hand duloxetine 30 mg capsule,delayed release(DR/EC) 30 mg PO DAILY fluoride (sodium) [PreviDent 5000 Dry Mouth] 1.1 % paste 1 applic dental DAILY Remedy Phytoplex Moisturizer Cream 1 applic topical DAILY PRN (Reason: Dry Skin) terbinafine HCl 1 % cream 1 applic topical BID aspirin 81 mg tablet,delayed release (DR/EC) 81 mg PO DAILY (DME) lancets [Accu-Chek Softclix Lancets] mis See Dose Instructions .ROUTE .MEDSUPPLY Qty: 200 3RF Dose Instruction: As directed Rx Instructions: testing twice daily sildenafil 100 mg tablet See Patient Comments .ROUTE .COMPLEX Qty: 10 0RF Dose Instruction: Take 1/2 to 1 tablet by mouth as needed Rx Instructions: Take 1/2 to 1 tablet by mouth as needed gabapentin 300 mg capsule 300 mg PO .COMPLEX Qty: 270 3RF Rx Instructions: 300 mg PO 1 cap in AM, 1 cap at lunch and 3 cap at bedtime. totally of 1500mg daily; Lantus U-100 Insulin 100 unit/mL solution 35 unit SUBCUT HS esomeprazole magnesium [Nexium] 40 mg capsule,delayed release(DR/EC) 40 mg PO QAM Qty: 90 3RF ropinirole 0.5 mg tablet 0.5 mg PO HS Qty: 90 3RF (DME) pen needle, diabetic [BD Ultra-Fine Micro Pen Needle] 32 gauge x 1/4" needle See Dose Instructions .ROUTE .MEDSUPPLY Qty: 50 Rx Instructions: As directed (DME) Accu-Chek Donya Plus test strp strip See Dose Instructions .ROUTE .MEDSUPPLY Qty: 10 Rx Instructions: As directed multivitamin [Daily Multi-Vitamin] tablet 1 tab PO QAM donepezil 5 mg tablet 5 mg PO DAILY Qty: 30 2RF glipizide 10 mg Tablet 10 mg PO BID metoprolol succinate 25 mg Tablet Extended Release 24 Hr 25 mg PO QAM cholecalciferol (vitamin D3) [Vitamin D3] 1,000 unit Tablet 1,000 unit PO QAM Norwood-3 350 mg-235 mg- 90 mg-597 mg capsule,delayed release(DR/EC) 1 cap PO QAM melatonin 5 mg Tablet 5 mg PO HS PRN (Reason: Sleep) Trulicity 3 mg/0.5 mL pen injector 3 mg subcut WK Rx Instructions: 3 mg subcut weekly take on Fridays; atorvastatin 80 mg Tablet 80 mg PO PM lisinopril 20 mg Tablet 20 mg PO QAM tamsulosin 0.4 mg capsule 0.4 mg PO DAILY Qty: 10 0RF Referrals Referrals: Charles Luis CRNP [Primary Care Provider] -
[2022-01-27] MEDS ORDERED: SODIUM CHLORIDE 0.9% 500 ML IV ONE (22:03)
[2022-01-27 22:32] LABS: Appearance Urine Clear (Clear); Bacteria Urine Automated Negative (Negative); Bilirubin Urine Negative (Negative); Blood Urine 2+ (Negative); Color Urine Yellow; Glucose Urine UA Trace (Negative); Ketones Urine Negative (Negative); Leukocyte Esterase Urine 2+ (Negative); Nitrite Urine Negative (Negative); Protein Urine Negative (Negative); Specific Gravity Urine 1.018 (1.000-1.030); Urobilinogen Urine Negative (Negative)
[2022-01-27] MEDS ORDERED: GABAPENTIN 300 MG CAP PO STA (22:32)
[2022-01-27] MEDS ORDERED: ATORVASTATIN 40 MG TAB PO STA (22:32)
[2022-01-27] MEDS ORDERED: rOPINIRole HCL 0.25 MG TABLET PO STA (22:32)
--- NOTE | 2022-01-27 22:54 | History & Physical Report ---
Date of Service January 27, 2022 Assessment & Plan (1) Brain TIA: Plan: 81yo male presenting with two transient episodes of neurological deficit - he reports diplopia, slurred speech and difficulty with RUE use. Presently resolved. -Observation to medical with telemetry -Check CTA head and neck -Check MRI brain -Check 2D echo -Check lipid panel. Last HgbA1C on 01/25/22 = 8.2 -Continue ASA 81mg po daily -Continue Atorvastatin 80mg po daily -Initiate Plavix 75mg po daily -PT/OT evaluation (2) Acute urinary retention: Plan: Chris in place -Maintenance q shift -Continue Flomax 0.4mg po daily (3) Cognitive dysfunction: Plan: Chronic -Frequent orientation -Continue Aricept 5mg po daily -Avoid potentially delirium inducing agents (4) Hypercholesteremia: Plan: Chronic -Continue Atorvastatin (5) CAD (coronary artery disease): Plan: Chronic. Patient denies chest pain. 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 Around 17:30 this evening patient reports feeling something was "off". He felt slightly confused and had a brief episode of diplopia involving both eyes. His symptoms lasted only a few minutes then resolved on their own. He denies speech difficulty, headache, focal numbness/tingling or weakness. At 19:30 patient was eating ice cream with his when he developed garbled speech and right facial droop. He also had some difficulty using his right upper extremity. His symptoms were self-limited, lasting only several minutes. His called EMS. Patient presently with no complaints. His family is at bedside and feel that he is back to his baseline. He denies fever, chills, cough, SOB, CP, abdominal pain, nausea, vomiting, diarrhea or constipation. He reports eating and drinking well. No bowel or bladder complaints. He recently had placement of Chris catheter for urinary retention and was started on Flomax. In the ER he is afebrile, HD stable, NAD ER Course: Atorvastatin, Gabapentin, Ropinirole, NSS Allergies Allergy/AdvReac Type Severity Reaction Status Date / Time simvastatin AdvReac Intermediate Joint pain Verified 01/27/22 09:22 Home Medications Medication Instructions Recorded Confirmed Type cholecalciferol (vitamin D3) 25 1,000 unit PO QAM 06/12/18 01/27/22 History mcg (1,000 unit) tablet (Vitamin D3) glipizide 10 mg tablet 10 mg PO BID 06/12/18 01/27/22 History metoprolol succinate 25 mg 25 mg PO QAM 06/12/18 01/27/22 History tablet,extended release 24 hr multivitamin (Daily Multi-Vitamin 1 tab PO QAM 09/04/18 01/27/22 History tablet) blood sugar diagnostic (Accu-Chek #10 ea 10/24/18 01/27/22 History Donya Plus test strips) pen needle, diabetic 32 gauge x #50 ea 10/24/18 01/27/22 History 1/4" (BD Ultra-Fine Micro Pen Needle) Accu-Chek Softclix Lancets #200 ea 12/24/18 01/27/22 Rx (lancets) sildenafil 100 mg tablet See Rx Instructions .Route 01/17/19 01/27/22 Rx .COMPLEX #10 tabs omega 3 350 mg-dha 235 mg-epa 90 1 cap PO QAM 05/02/19 01/27/22 History mg-fish oil 597 mg capsule,delay rel ([place]-3) melatonin 5 mg tablet 5 mg PO HS PRN Sleep 03/04/20 01/27/22 History gabapentin 300 mg capsule 300 mg PO .COMPLEX #270 caps 03/26/21 01/27/22 Rx aspirin 81 mg tablet,delayed 81 mg PO DAILY 07/16/21 01/27/22 History release diclofenac sodium 1 % topical gel 2 g topical QID PRN Pain 05/06/22 11/17/22 History duloxetine 30 mg capsule,delayed 30 mg PO DAILY 07/16/21 01/27/22 History release emollient combination no.111 1 applic topical DAILY PRN Dry Skin 07/16/21 01/27/22 History (Remedy Phytoplex Moisturizer topical cream) fluoride (sodium) 1.1 % dental 1 applic dental DAILY 07/16/21 01/27/22 History paste (PreviDent 5000 Dry Mouth) terbinafine HCl 1 % topical cream 1 applic topical BID 07/16/21 01/27/22 History insulin glargine 100 unit/mL 35 unit subcut HS 09/29/21 01/27/22 History subcutaneous solution (Lantus U-100 Insulin) donepezil 5 mg tablet 5 mg PO DAILY #30 tabs 12/20/21 01/27/22 Rx esomeprazole magnesium 40 mg 40 mg PO QAM #90 caps 12/21/21 01/27/22 Rx capsule,delayed release (Nexium) ropinirole 0.5 mg tablet 0.5 mg PO HS #90 tabs 12/21/21 01/27/22 Rx tamsulosin 0.4 mg capsule 0.4 mg PO DAILY #10 caps 01/24/22 01/27/22 Rx atorvastatin 80 mg tablet 80 mg PO PM 01/27/22 01/27/22 History dulaglutide 3 mg/0.5 mL 3 mg subcut WK 01/27/22 01/27/22 History subcutaneous pen injector (Trulicity) lisinopril 20 mg tablet 20 mg PO QAM 01/27/22 01/27/22 History Past Med/Surg History Medical History Acid reflux controlled Anemia Arteriosclerotic heart disease CAD (coronary artery disease) s/p CABGx3 (2012), follows with [facility] cardiology 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 Barton Type 2 diabetes mellitus with stage 3 chronic kidney disease Uncontrolled type 2 diabetes mellitus with microalbuminuria Urinary tract infection Visual disturbance Surgical History H/O excision of mass cervical neck birthmark removal (as child) History of cardiac cath 2012- no stents History of cataract surgery R/L History of colonoscopy History of left knee replacement 05/2020 History of tonsillectomy History of tooth extraction History of total knee replacement Right TKA: 11/19/19: SAB x1 attempt at L4-L5 + PNB at [facility] Hx of lymph node excision Left inguinal lymph node biopsy: 07/11/18: LMA#5 at [facility] S/P CABG x 3 [place] [place] Status post right knee replacement Status post total left knee replacement Family History Mother , 80yo Heart disease Myocardial infarction Father Esophageal cancer Brother Coronary heart disease Family hx colonic polyps Sister Heart disease Presence of combination internal cardiac defibrillator (ICD) and pacemaker Sister Presence of combination internal cardiac defibrillator (ICD) and pacemaker COPD (chronic obstructive pulmonary disease) Son No problems noted. Daughter Crohn's disease Short gut syndrome Aunt Family history of diabetes mellitus Uncle Family history of diabetes mellitus Grandmother (Paternal) Family history of diabetes mellitus Denies family history of Ovarian cancer Prostate cancer Breast cancer Colorectal cancer Social History Smoking Status: Former smoker Tobacco Type: Cigarettes Age Started Using Tobacco: 13; Age Quit Using Tobacco: 72; packs per day: 0.25; Second Hand Exposure: Yes (MOTHER SMOKED); Hx Alcohol Use: No Hx Substance Use: No Preferred Language: Russian Communication Ability: Effective Visual Impairment: No Limitations Hearing Ability: Normal Crankshaft Straightener Required: No Beliefs That Will Affect Care: None marital status: Current Living Situation: Spouse current occupational status: retired 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 [employer] Feels Safe at Home: Yes Childhood Exposure to Second-Hand Smoke: Yes caffeine: Yes (6 cups/day) during the past year weight has: remained stable Dental Care, Regularly: Yes Physical Activity Frequency: 3-4 Times per Week Seatbelt Use: always Sunscreen Use: Yes Assistive Devices: Glasses and Walker Review of Systems Review of Systems: All systems reviewed & are unremarkable except as noted in HPI & below Physical Exam Physical Exam: General: patient resting comfortably, NAD, non-toxic in appearance, AA&O x 4 Skin: warm, dry, intact, no rashes or lesions, has cutaneous B-cell lymphoma HEENT: NC/AT, PERRL, EOMI, anicteric sclera, conjunctiva without injection, external ear normal to inspection and nontender, nares patent, moist mucus membranes, dentition intact, no oropharyngeal lesions, neck supple, trachea midline, no LAD, no thyromegaly, no JVD Heart: +S1/S2, regular, no m/r/g Lungs: equal air entry bilaterally, no rales/rhonchi/wheezes Abd: +BS, soft, NT/ND, no masses/organomegaly/ascites Ext: warm, 2+ pulses in UE/LE bilaterally, no clubbing/cyanosis or edema Neuro: patient AA&O x 4, speech intact, no facial droop, CN II -XII grossly intact, sensation to light touch intact, moving all extremities on command with equal strength 5/5, no drift, mild dysmetria noted with [id number] with left hand. Gait not assessed. Results & Data Results & Data ([facility]) Vital Signs (Past 12 Hours) Vital Signs Pulse Pulse Resp BP BP Pulse Ox O2 Del Method 01/27/22 22:25 74 18 96 Room Air 01/27/22 21:21 73 19 108/71 97 Room Air 01/27/22 20:09 68 18 132/87 98 Room Air Laboratory Results Laboratory Results WBC 8.11 K/ul (4.8-10.8) 01/27/22 20: RBC 4.18 M/uL (4.63-6.08) L 01/27/22 20:23 Hgb 12.2 g/dl (14.0-18.0) L 01/27/22 20:23 Hct 36.3 % (40.1-51.0) L 01/27/22 20:23 MCV 86.8 fL (80.0-100.0) 01/27/22 20: MCH 29.2 pg (25.0-34.0) 01/27/22 20: MCHC 33.6 g/dL (32.0-36.0) 01/27/22 20: RDW Std Deviation 41.1 fL (36.4-46.3) 01/27/22: RDW Coeff of Oswaldo 13.1 % (11.5-14.5) 01/27/22: Plt Count 218 K/uL (130-400) 01/27/22: MPV 10.4 fL (9.4-12.4) 01/27/22: Immature Gran % (Auto) 0.2 % 01/27/22: Neut % (Auto) 65.7 % 01/27/22: Lymph % (Auto) 22.1 % 01/27/22: [place] % (Auto) 7.0 % 01/27/22: Eos % (Auto) 4.3 % 01/27/22 20: Baso % (Auto) 0.7 % 01/27/22: Neut # (Auto) 5.32 K/uL (1.4-6.5) 01/27/22: Lymph # (Auto) 1.79 K/uL (1.2-3.4) 01/27/22 20: [place] # (Auto) 0.57 K/uL (0.24-0.82) 01/27/22: Eos # (Auto) 0.35 K/uL (0-0.50) 01/27/22 20: Baso # (Auto) 0.06 K/uL (0-0.2) 01/27/22: Immature Gran # (Auto) 0.02 K/uL (0.00-0.02) 01/27/22 20: Sodium 135 mmol/L (136-145) L 01/27/22 20: Potassium 4.2 mmol/L (3.5-5.1) 01/27/22: Chloride 100 mmol/L (98-107) 01/27/22 20: Carbon Dioxide 26 mmol/L (21-32) 01/27/22 20: Anion Gap 9 (3-11) 01/27/22 20: BUN 28 mg/dl (6-23) H 01/27/22: Creatinine 1.41 mg/dl (0.6-1.4) H 01/27/22 Est Cr Clr Drug Dosing 46.5 ml/min 01/27/22 20: Est GFR ( Amer) 54.5 ml/min 01/27/22 Est GFR (Non-Af Amer) 47.0 ml/min 01/27/22: BUN/Creatinine Ratio 19.9 (10-20) 01/27/22: Glucose 210 mg/dl (70-99(Fasting)) H 01/27/22: Calcium 9.4 mg/dl (8.5-10.1) 01/27/22: Total Bilirubin 0.5 mg/dl (0.2-1.0) 01/27/22: AST 25 U/L (13-39) 01/27/22: ALT 30 U/L (7-52) 01/27/22 20: Alkaline Phosphatase 63 U/L (34-104) 01/27/22: Troponin I High Sens 8.1 pg/ml (0-20) 01/27/22: Total Protein 6.7 gm/dl (6.0-8.3) 01/27/22: Albumin 3.7 gm/dl (3.4-5.0) 01/27/22: Globulin 3.0 gm/dl (2.5-4.0) 01/27/22: Albumin/Globulin Ratio 1.2 (0.9-2) 01/27/22: TSH 2.065 uIu/ml (0.300-4.500) 01/27/22: Urine Color Yellow 01/27/22 22:00 Urine Appearance Clear (Clear) 01/27/22 22: Urine pH 5.0 (4.5-7.5) 01/27/22 22:00 Ur Specific [place] 1.018 (1.000-1.030) 01/27/22 22:00 Urine Protein Negative (Negative) 11/17/22 22:00 Urine Glucose (UA) Trace (Negative) H 01/27/22 22:00 Urine Ketones Negative (Negative) 01/27/22 22:00 Urine Blood 2+ (Negative) H 01/27/22 22:00 Urine Nitrite Negative (Negative) 01/27/22 22:00 Urine Bilirubin Negative (Negative) 01/27/22 22:00 Urine Urobilinogen Negative (Negative) 01/27/22 22:00 Ur Leukocyte Esterase 2+ (Negative) H 01/27/22 22:00 Urine WBC (Auto) 5-10 /hpf (0-5) H 01/27/22 22:00 Urine RBC (Auto) 10-30 /hpf (0-4) H 01/27/22 22:00 U Hyaline Cast (Auto) 1-5 /lpf (0-5) 01/27/22 22:00 U Epithel Cells (Auto) 5-10 /lpf (0-5) H 01/27/22 22:00 Urine Bacteria (Auto) Negative (Negative) 01/27/22 22:[address] Head - per STAT rad - no intracranial hemorrhage, mass-effect or midline shift. There is no abnormal extra axial fluid collection. No evidence of acute infarct. Mild periventricular white matter hypodensities are most consistent with chronic micro-angiopathy. The visualized paranasal sinuses and mastoid air cells are clear. 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
[2022-01-28] MEDS ORDERED: DEXTROSE 50% 50 ML SYRINGE IV PRN (01:09)
[2022-01-28] MEDS ORDERED: GLUCAGON FOR INJ 1 MG VIAL SQ PRN (01:09)
[2022-01-28] MEDS ORDERED: DICLOFENAC SOD 1% GEL 100 GM TUBE EXT PRN (01:09)
[2022-01-28] MEDS ORDERED: ACETAMINOPHEN 325 MG TAB PO PRN (01:09)
[2022-01-28] MEDS ORDERED: GLUCOSE 10 TAB/TUBE PO PRN (01:09)
[2022-01-28] MEDS ORDERED: GLUCOSE 40% GEL 15 GM TUBE PO PRN (01:09)
[2022-01-28] MEDS ORDERED: CARBOHYDRATES FOR HYPOGLYCEMIA PO PRN (01:09)
[2022-01-28] MEDS ORDERED: MELATONIN 3 MG TAB PO PRN (01:41)
[2022-01-28] MEDS ORDERED: GADOBUTROL 65ML VIAL IV ONE (02:22)
--- NOTE | 2022-01-28 07:10 | XRay Report ---
XR chest 1V portable CLINICAL HISTORY: weakness TECHNIQUE: Single frontal radiograph of the chest was obtained. Comparison: Comparison is made to chest radiograph 10/19/2019 FINDINGS: Median sternotomy latter fractures are again noted. Postsurgical changes are seen. The cardiomediasti nal silhouette is normal. The lungs are clear. No evidence of pleural effusion or pneumothorax. IMPRESSION: No acute chest disease. ACT 112: Negative or not required by law. Electronically signed by: Steven Chowdhury M.D. 01/28/2022 7:09 AM
--- NOTE | 2022-01-28 07:12 | CT Scan Report ---
HEAD CT NONCONTRAST CT DOSE: 614.27 mGy.cm HISTORY: slurred speech TECHNIQUE: Multiaxial CT images of the head were performed without the use of intravenous contrast. A utomated exposure control was utilized for this study. A dose lowering technique was utilized adheri ng to the principles of ALARA. Comparison: None. Findings: The paranasal sinuses and mastoid air cells are clear. The calvarium and skull base are int act. The ventricles and sulci are within normal limits. There is no mass, hematoma, midline shift, or acute infarct. Impression: No acute intracranial abnormality. ACT 112: Negative or not required by law. Electronically signed by: Satish Lyman M.D. 01/28/2022 7:11 AM
[2022-01-28] MEDS ORDERED: INSULIN ASPART PER UNIT SC SCH (07:30)
[2022-01-28] MEDS: GABAPENTIN 300 MG CAP PO SCH ×2 (08:05→11:38)
[2022-01-28 08:38] LABS: Basophils # (auto) 0.05 K/uL (0-0.2); Basophils % (auto) 0.8 %; Eosinophils # (auto) 0.32 K/uL (0-0.50); Hematocrit (blood only) 34.4 % (40.1-51.0); Hemoglobin 11.5 g/dl (14.0-18.0); Immature Granulocytes # (auto) 0.01 K/uL (0.00-0.02); Immature Granulocytes % (auto) 0.2 %; Lymphocytes # (auto) 1.56 K/uL (1.2-3.4); Lymphocytes % (auto) 24.4 %; Mean Corpuscular Hemoglobin 28.7 pg (25.0-34.0); Mean Corpuscular Hgb Conc 33.4 g/dL (32.0-36.0); Mean Corpuscular Volume 85.8 fL (80.0-100.0); Mean Platelet Volume 10.1 fL (9.4-12.4); Monocytes # (auto) 0.51 K/uL (0.24-0.82); Neutrophils # (auto) 3.95 K/uL (1.4-6.5); Neutrophils % (auto) 61.6 %; Platelet Count 207 K/uL (130-400); RDW Coefficient of Variation 13.1 % (11.5-14.5); Red Blood Count 4.01 M/uL (4.63-6.08)
[2022-01-28 08:58] LABS: BUN Creatinine Ratio 19.5 (10-20); Chol HDL Ratio 4.2 (0-5); Creatinine Clr Calc Pharmacy 48.6 ml/min; Est GFR (African American) 58.5 ml/min; Est GFR (Non-African American) 50.5 ml/min; Potassium 4.3 mmol/L (3.5-5.1)
[2022-01-28] MEDS ORDERED: lisinopril 20 MG TAB PO SCH (09:00)
[2022-01-28] MEDS ORDERED: DONEPEZIL HCL 5 MG TAB PO SCH (09:00)
[2022-01-28] MEDS ORDERED: ASPIRIN 81 MG ECTAB PO SCH (09:00)
[2022-01-28] MEDS ORDERED: LANTUS PER UNIT CHARGE SQ SCH (09:00)
[2022-01-28] MEDS ORDERED: TAMSULOSIN HCL 0.4 MG CAP PO SCH (09:00)
[2022-01-28] MEDS ORDERED: METOPROLOL SUCC 25MG EXT REL TAB PO SCH (09:00)
[2022-01-28] MEDS ORDERED: DULoxetine HCL 30 MG CAP PO SCH (09:00)
[2022-01-28] MEDS ORDERED: CLOPIDOGREL BISULFATE 75 MG TAB PO SCH (09:00)
[2022-01-28] MEDS ORDERED: PANTOprazole 40 MG TAB PO SCH (09:00)
[2022-01-28] MEDS ORDERED: TERBINAFINE CR 30 GM TUBE EXT SCH (09:00)
[2022-01-28] MEDS ORDERED: OPTIRAY 320 500ml IV ONE (09:10)
--- NOTE | 2022-01-28 09:54 | Electrocardiogram Report ---
Test Reason : Blood Pressure : / mmHG Vent. Rate : 068 BPM Atrial Rate : 068 BPM P-R Int : 246 ms QRS Dur : 110 ms QT Int : 418 ms P-R-T Axes : 031 -12 035 degrees QTc Int : 444 ms Sinus rhythm with 1st degree A-V block Moderate voltage criteria for LVH, may be normal variant Borderline ECG When compared with ECG of 26-JAN-2022 11:16, VA interval has increased Confirmed by Jake Bacon ([id number]) on 01/28/2022 9:54:00 AM Referred By: REFERRED SELF Confirmed By:Jake Bacon
[2022-01-28 09:56] VITALS: TEMP 98.1; O2SAT 94
[2022-01-28 09:57] VITALS: BP 119/67
--- NOTE | 2022-01-28 10:20 | Discharge Summary ---
Date of Service January 28, 2022 Admission HPI Per Admitting Provider Brijesh Miranda is a pleasant 81yo male with history of CAD s/p CABG x 3V, DM, HTN, HLP, CKD and T-cell lymphoma presenting with transient neurological complaints. Around 17:30 this evening patient reports feeling something was "off". He felt slightly confused and had a brief episode of diplopia involving both eyes. His symptoms lasted only a few minutes then resolved on their own. He denies speech difficulty, headache, focal numbness/tingling or weakness. At 19:30 patient was eating ice cream with his when he developed garbled speech and right facial droop. He also had some difficulty using his right upper extremity. His symptoms were self-limited, lasting only several minutes. His called EMS. Patient presently with no complaints. His family is at bedside and feel that he is back to his baseline. He denies fever, chills, cough, SOB, CP, abdominal pain, nausea, vomiting, diarrhea or constipation. He reports eating and drinking well. No bowel or bladder complaints. He recently had placement of Chris catheter for urinary retention and was started on Flomax. In the ER he is afebrile, HD stable, NAD ER Course: Atorvastatin, Gabapentin, Ropinirole, NSS Principal Diagnosis TIA Discharge Exam General-alert and oriented x3, no fevers, no chills HEENT-head atraumatic and normocephalic, pupils equal and reactive to light, extraocular muscles intact Neck-no lymphadenopathy or thyromegaly, trachea midline Chest-clear to auscultation percussion. No rales wheezing or rhonchi Cardiac-regular rate and rhythm, normal S1 and S2, no murmurs Abdomen-normal bowel sounds, nontender, no hepatosplenomegaly Extremities-no cyanosis, clubbing, or edema Neuro-cranial nerves II through XII intact, motor and sensory function within normal limits, strength symmetrical , no focal deficits Psych-normal affect, normal mood Discharge Data Allergies Allergy/AdvReac Type Severity Reaction Status Date / Time simvastatin AdvReac Intermediate Joint pain Verified 01/27/22 09:22 Consultations 01/27/22 22:06 ED Decision to Admit Stat Ordered Studies 01/27/22 20:56 CT head/brain wo con Stat 01/28/22 01:09 CT angio head w con Routine CT angio neck with con Routine MR brain wo/w con Routine Hospital Course (1) Brain TIA: The patient is back to his baseline. Plavix has been added to the aspirin. He had his brain MRI and CTA but the results are pending. He can follow-up with his PCP to get these results. He is otherwise stable at this time. (2) Acute urinary retention: Chris in place. Maintenance q shift. Continue Flomax 0.4mg po daily (3) Cognitive dysfunction: Chronic. Frequent orientation. Continue Aricept 5mg po daily (4) Hypercholesteremia: Chronic. Continue Atorvastatin (5) CAD (coronary artery disease): Chronic. Patient denies chest pain. Continue ASA and Atorvastatin. Metoprolol and lisinopril have been restarted which were held on admission -Holding Lisinopril for now (6) Diabetes mellitus without complication: Chronic. ADA diet, basal insulin therapy, sliding scale coverage as needed. Glipizide held on admission and will be restarted at discharge. 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 Continue Terbinafine (8) Acid reflux: Chronic. Continue Esomeprazole (9) Hypertension: Blood pressure presently well controlled. Metoprolol and lisinopril have been restarted Plan Home today, January 28, with addition of Plavix Total Time Total Time Spent Total Time Spent (In Minutes): 35 minutes Discharge Plan Discharge Items Patient Disposition: Home - Self-Care Reason For Visit: ?TIA / CVA Discharge Diagnosis: TIA Activity: Resume your previous activity Non-emergency contact: Primary Care Provider Call non-emergency contact if: you have any medication questions and your symptoms worsen Follow-up/Referrals: Charles Luis CRNP [Primary Care Provider] - Diet: Carb Consistent or DM2 and Heart Healthy Addtl Attending Provider Instructions: Plavix (clopidogrel) 75 mg once a day has been added to your medication regimen Pending Studies at Discharge: No Stand-Alone Forms: My seedtag, Smoking Cessation Medications and DC Order Prescriptions: New clopidogrel 75 mg Tablet 75 mg PO QAM Qty: 30 0RF Continued diclofenac sodium 1 % gel 2 g topical QID PRN (Reason: Pain) Rx Instructions: apply to single elbow, wrist or hand; for hand includes palm/fingers/back of hand duloxetine 30 mg capsule,delayed release(DR/EC) 30 mg PO DAILY fluoride (sodium) [PreviDent 5000 Dry Mouth] 1.1 % paste 1 applic dental DAILY Remedy Phytoplex Moisturizer Cream 1 applic topical DAILY PRN (Reason: Dry Skin) terbinafine HCl 1 % cream 1 applic topical BID aspirin 81 mg tablet,delayed release (DR/EC) 81 mg PO DAILY (DME) lancets [Accu-Chek Softclix Lancets] misc See Dose Instructions .ROUTE .MEDSUPPLY Qty: 200 3RF Dose Instruction: As directed Rx Instructions: testing twice daily sildenafil 100 mg tablet See Patient Comments .ROUTE .COMPLEX Qty: 10 0RF Dose Instruction: Take 1/2 to 1 tablet by mouth as needed Rx Instructions: Take 1/2 to 1 tablet by mouth as needed gabapentin 300 mg capsule 300 mg PO .COMPLEX Qty: 270 3RF Rx Instructions: 300 mg PO 1 cap in AM, 1 cap at lunch and 3 cap at bedtime. totally of 1500mg daily; Lantus U-100 Insulin 100 unit/mL solution 35 unit SUBCUT HS esomeprazole magnesium [Nexium] 40 mg capsule,delayed release(DR/EC) 40 mg PO QAM Qty: 90 3RF ropinirole 0.5 mg tablet 0.5 mg PO HS Qty: 90 3RF (DME) pen needle, diabetic [BD Ultra-Fine Micro Pen Needle] 32 gauge x 1/4" needle See Dose Instructions .ROUTE .MEDSUPPLY Qty: 50 Rx Instructions: As directed (DME) Accu-Chek Donya Plus test strp strip See Dose Instructions .ROUTE .MEDSUPPLY Qty: 10 Rx Instructions: As directed multivitamin [Daily Multi-Vitamin] tablet 1 tab PO QAM donepezil 5 mg tablet 5 mg PO DAILY Qty: 30 2RF glipizide 10 mg Tablet 10 mg PO BID metoprolol succinate 25 mg Tablet Extended Release 24 Hr 25 mg PO QAM cholecalciferol (vitamin D3) [Vitamin D3] 1,000 unit Tablet 1,000 unit PO QAM [place]-3 350 mg-235 mg- 90 mg-597 mg capsule,delayed release(DR/EC) 1 cap PO QAM melatonin 5 mg Tablet 5 mg PO HS PRN (Reason: Sleep) Trulicity 3 mg/0.5 mL pen injector 3 mg subcut WK Rx Instructions: 3 mg subcut weekly take on Fridays; atorvastatin 80 mg Tablet 80 mg PO PM lisinopril 20 mg Tablet 20 mg PO QAM tamsulosin 0.4 mg capsule 0.4 mg PO DAILY Qty: 10 0RF Discharge Orders: Discharge Order (Routine); Ordered 01/28/22 Ordered By: Familia Brambila Admission Data Admit Date/Time: 01/27/22 22:54 Attending Provider: Familia Brambila Admit Provider: Sandra Pineda Primary Care Provider: Charles Luis Other Providers: Sandra Pineda Coding Level of Care Code D/C DAY MANAGEMENT >30 MINS Diagnoses Brain TIA G45.9 Acute urinary retention R33.8 Cognitive dysfunction F09 Hypercholesteremia E78.00 CAD (coronary artery disease) I25.10 Diabetes mellitus without complication E11.9 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
--- NOTE | 2022-01-28 10:34 | CT Scan Report ---
HEAD CTA HISTORY: Slurred speech. ?TIA/CVA TECHNIQUE: Multiaxial CT images of the head were performed following the intravenous administration o f contrast to evaluate the major cerebral vessels. Maximum intensity projection images were also obta ined. A dose lowering technique was utilized adhering to the principles of ALARA. COMPARISON: Head CT 01/27/2022. FINDINGS: There is a 2.7 cm enhancing extra-axial mass abutting the left petrous bone. This favors a meningioma. Visualized distal vertebral arteries, and basilar artery are widely patent. There is no s ignificant stenosis, occlusion, or aneurysm seen within the bilateral ACAs, MCAs, or student recruiter. The right A1 segment is absent which is likely developmental. The major dural venous sinuses are patent. Modera te to severe calcified plaque within the bilateral carotid siphons and petrous segments of the bilate ral internal carotid arteries resulting in mild to moderate multifocal stenosis of up to 50%. IMPRESSION: 1. No significant stenosis, occlusion, or aneurysm within the que[place] of [place]. 2. Moderate to severe calcified plaque within the bilateral intracranial internal carotid arteries re sulting in mild to moderate multifocal stenosis. 3. A 2.7 cm enhancing extra-axial mass abutting the left petrous bone. This favors a meningioma. ACT 112: Negative or not required by law. Electronically signed by: Satish Lyman M.D. 01/28/2022 10:32 AM
[2022-01-28 11:12] VITALS: PULSE 68
--- NOTE | 2022-01-28 14:00 | Magnetic Resonance Report ---
MR brain wo/w con CLINICAL HISTORY: ?TIA/CVA TECHNIQUE: Multiplanar and multisequence MR images of the brain were obtained prior to and following administration of gadolinium contrast. Comparison: Comparison is made to MRI brain 10/21/2021 FINDINGS: No abnormal restricted diffusion is identified. Foci of T2 and FLAIR hyperintensity are noted in the paraventricular areas consistent with chronic small vessel ischemic disease. Ex vacuo ventriculomegal y and sulcal enlargement is noted compatible with diffuse encephalomalacia. Enhancing left tentorial mass measures 24 x 21 mm, unchanged from prior exam. There is no mass effect or midline shift. There is no evidence of acute intraparenchymal hemorrhage. No extra axial fluid collections are seen. The c orpus callosum, pituitary gland, and cerebellar tonsils appear grossly unremarkable. Flow voids of the major intracranial arterial vessels are identified. The imaged portions of the para nasal sinuses, mastoid air cells, and orbits are unremarkable. IMPRESSION: 1. No acute abnormality is seen in particular no evidence of acute infarct. 2. Stable enhancing lesion arising from the left cerebellar tentorium, unchanged from 2019 and sligh tly increased from 2014, compatible with meningioma. ACT 112: Negative or not required by law. Electronically signed by: Steven Chowdhury M.D. 01/28/2022 1:59 PM
--- NOTE | 2022-01-28 15:26 | CT Scan Report ---
CT angio neck with con CLINICAL HISTORY: ?TIA/CVA TECHNIQUE: CT angiography of the neck was performed following intravenous administration of iodinated contrast. Coronal and sagittal MIPS were obtained from the axial data set and were submitted for rev iew. Automated dose lowering techniques and/or adjustment according to patient size were utilized fo r this examination. All measurements were calculated based on NASCET criteria. Comparison: None available at the time of this dictation. FINDINGS: Lungs and soft tissues are unremarkable. CTA Neck: A 3 vessel aortic arch is shown. Atherosclerotic plaque is present in the aortic arch and at the origin of the great vessels. There is mild calcified atherosclerotic plaque at the bifurcatio n of the bilateral common carotid arteries without hemodynamically significant flow stenosis. There i s no dissection present. There is atherosclerosis of the origin of the bilateral vertebral arteries w ithout hemodynamically significant stenosis. There is narrowing of the bilateral vertebral arteries a t the level of C5-C6 which may be hemodynamically significant. Multilevel degenerative changes are se en in the vertebrae. 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 There is narrowing of the bilateral vertebral arter ies which may represent significant stenosis. Assessment of stenosis of the internal carotid arteries is based on NASCET criteria. ACT 112: Negative or not required by law. Electronically signed by: Steven Chowdhury M.D. 01/28/2022 3:25 PM
[2022-01-28] MEDS ORDERED: ATORVASTATIN 40 MG TAB PO SCH (21:00)
[2022-01-28] MEDS ORDERED: rOPINIRole HCL 0.25 MG TABLET PO SCH (21:00)
[2022-01-28] MEDS ORDERED: GABAPENTIN 300 MG CAP PO SCH (21:00)
== END 2022-01-28 12:18 | disposition home or self-care (01) ==
LOC: 2N 20:15 → ED 20:15 → SUATTDRO 22:54 → 2N 01-28 00:49